=== PATIENT | male | born 1950 | race Caucasian/White ===

== ENCOUNTER 2022-08-01 00:29 | Day surgery (SDC) | payer MEDICARE, OTHER, SELFPAY ==
[2022-07-13 13:37] VITALS: BMI 34.7
[2022-08-01 06:18] VITALS: BP 172/77; PULSE 73; RESP 18; TEMP 36.7; O2SAT 98; BMI 34.8
[2022-08-01] MEDS: LACTATED RINGERS 1,000 ML 150 ML IV CONT (06:47)
--- NOTE | 2022-08-01 07:13 | WPDANESEPPF ---
Anes - Initial Pre Proc Eval Procedure: Operation Date: 08/01/22 07:30 Proposed Procedures p Colonoscopy - Rubén Finney MD Date/Time: 08/01/22 07:13 Surgeon: Rubén Finney MD Pre Op Diagnosis: LENARD Patient Data Age: 71 Gender: M Height: 1.78 m Weight: 110.1 kg Last Vital Signs Temp 98.0 F 08/01/22 06:18 Pulse 73 08/01/22 06:18 Resp 18 08/01/22 06:18 BP 172/77 H 08/01/22 06:18 Pulse Ox 98 08/01/22 06:18 O2 Del Method Room Air 08/01/22 06:18 Allergies Allergy/AdvReac Type Severity Reaction Status Date / Time No Known Allergies Allergy NONE Verified 08/01/22 06:25 Home Medications Medication Instructions Recorded Confirmed Type aspirin 81 mg tablet,delayed 81 mg PO DAILY 09/09/19 08/01/22 History release (Adult Aspirin Regimen) amlodipine 10 mg tablet 10 mg PO DAILY #90 tabs 12/27/21 08/01/22 Rx atorvastatin 40 mg tablet 40 mg PO DAILY #90 tabs 12/27/21 08/01/22 Rx carvedilol 25 mg tablet 25 mg PO Q12H #180 tabs 12/27/21 08/01/22 Rx ferrous sulfate 325 mg (65 mg 325 mg PO DAILY 12/27/21 08/01/22 History iron) tablet (Sohail-Time) losartan 100 1 tablet PO DAILY #90 tabs 12/27/21 08/01/22 Rx mg-hydrochlorothiazide 25 mg tablet magnesium oxide 400 mg (241.3 mg See Rx Instructions .Route 12/27/21 08/01/22 Rx magnesium) tablet .COMPLEX #180 tabs omeprazole 40 mg capsule,delayed 40 mg PO DAILY #90 caps 12/27/21 08/01/22 Rx release potassium chloride 10 mEq 10 meq PO DAILY #90 caps 01/24/22 08/01/22 Rx capsule,extended release Patient hx anesthesia problems: none Family hx anesthesia problems: none Results Review: All pre-operative results and documents have been reviewed as part of the pre-operative evaluation. [facility] Past Medical History Medical History Adult general medical exam Anemia Atypical chest pain Bilateral edema of lower extremity Carpal tunnel syndrome of right wrist Deviated septum Dietary counseling and surveillance (10/17/16) Encounter for screening for malignant neoplasm of prostate Fatigue Gastro-esophageal reflux disease without esophagitis Hiatal hernia History of hyperlipidemia History of hypertension Hyperglycemia Hypokalemia Hypomagnesemia Low serum HDL Other fatigue Other hyperlipidemia Pure hypercholesterolemia Pure hypercholesterolemia, unspecified Right arm pain Testicular hypofunction Thrombocytopenia, unspecified Uvulitis Ventral hernia without obstruction or gangrene Vertigo Surgical History Surgical History History of carpal tunnel release History of cataract removal with insertion of prosthetic lens History of lumbosacral spine surgery History of nasal surgery History of umbilical hernia repair Family History Family History Father Cerebrovascular accident, Onset Age: 81 Patient's father is Mother Family history of diabetes mellitus in first degree relative, Onset Age: 80 Family history of renal failure Patient's mother is Cerebrovascular accident Diabetes mellitus Other Cancer Social History Social History Smoking packs per day: 0.5 Smoking cigarettes per day: 10.0 Years smoked: 3 Smoking pack-years: 1.50 Smoking status: Former smoker Tobacco type: cigarettes Second hand tobacco smoke exposure: No Smoking end date: 10/22/87 Substance use: never Substance use type: does not use Living arrangements: other Additional living arrangements comments: with diya Perez Final PreProcedure Day of Procedure 08/01/22 07:13 Patient weight: obese Heart: regular rate and rhythm Lungs: clear to auscultation Neurological: alert and oriented Last oral intake: >/= 8 hours ASA classification: III Emergent: no Anestheti
--- NOTE | 2022-08-01 07:59 | PM.HPGS ---
History of Present Illness History of Present Illness Consent: Risks, benefits, and alternatives have been discussed and questions answered. Patient agrees to proceed with procedure. Chief complaint: LENARD Narrative: Torin Richards is a 71 year old male Recently found to have anemia. Patient denies any blood in his stools. He denies abdominal pain. He has had no obvious bleeding. He denies bleeding elsewhere. No nose bleeds or bruises. Family history noncontributory. Is been about 10 years since last screening exam. Patient presents today for colonoscopy. Recent iron studies appear adequate. There was some concern over previous low iron. Patient's baseline hemoglobin briefly was round 10. With normochromic normocytic indices. Review of Systems Review of Systems: Review of systems noncontributory. REPLACED BY [facility] Past Medical History Medical History Adult general medical exam Anemia Atypical chest pain Bilateral edema of lower extremity Carpal tunnel syndrome of right wrist Deviated septum Dietary counseling and surveillance (10/17/16) Encounter for screening for malignant neoplasm of prostate Fatigue Gastro-esophageal reflux disease without esophagitis Hiatal hernia History of hyperlipidemia History of hypertension Hyperglycemia Hypokalemia Hypomagnesemia Low serum HDL Other fatigue Other hyperlipidemia Pure hypercholesterolemia Pure hypercholesterolemia, unspecified Right arm pain Testicular hypofunction Thrombocytopenia, unspecified Uvulitis Ventral hernia without obstruction or gangrene Vertigo Surgical History Surgical History History of carpal tunnel release History of cataract removal with insertion of prosthetic lens History of lumbosacral spine surgery History of nasal surgery History of umbilical hernia repair Family History Family History Father Cerebrovascular accident, Onset Age: 81 Patient's father is Mother Family history of diabetes mellitus in first degree relative, Onset Age: 80 Family history of renal failure Patient's mother is Cerebrovascular accident Diabetes mellitus Other Cancer Social History Social History Smoking packs per day: 0.5 Smoking cigarettes per day: 10.0 Years smoked: 3 Smoking pack-years: 1.50 Smoking status: Former smoker Tobacco type: cigarettes Second hand tobacco smoke exposure: No Smoking end date: 10/22/87 Substance use: never Substance use type: does not use Living arrangements: other Additional living arrangements comments: with sp Meds Home Medications and Allergies Home Medications Medication Instructions Recorded Confirmed Type aspirin 81 mg tablet,delayed 81 mg PO DAILY 09/09/19 08/01/22 History release (Adult Aspirin Regimen) amlodipine 10 mg tablet 10 mg PO DAILY #90 tabs 12/27/21 08/01/22 Rx atorvastatin 40 mg tablet 40 mg PO DAILY #90 tabs 12/27/21 08/01/22 Rx carvedilol 25 mg tablet 25 mg PO Q12H #180 tabs 12/27/21 08/01/22 Rx ferrous sulfate 325 mg (65 mg 325 mg PO DAILY 12/27/21 08/01/22 History iron) tablet (Sohail-Time) losartan 100 1 tablet PO DAILY #90 tabs 12/27/21 08/01/22 Rx mg-hydrochlorothiazide 25 mg tablet magnesium oxide 400 mg (241.3 mg See Rx Instructions .Route 12/27/21 08/01/22 Rx magnesium) tablet .COMPLEX #180 tabs omeprazole 40 mg capsule,delayed 40 mg PO DAILY #90 caps 12/27/21 08/01/22 Rx release potassium chloride 10 mEq 10 meq PO DAILY #90 caps 01/24/22 08/01/22 Rx capsule,extended release Allergies Allergy/AdvReac Type Severity Reaction Status Date / Time No Known Allergies Allergy NONE Verified 08/01/22 06:25 Vital Signs Vital Signs - 24 hr 08/01/22 06:18 Temperature 98.0 F Pulse Rate 73
[2022-08-01 08:03] VITALS: BP 127/94; PULSE 70; RESP 21; O2SAT 97
[2022-08-01 08:13] VITALS: BP 137/73; PULSE 67; RESP 20; O2SAT 99
[2022-08-01 08:23] VITALS: BP 143/73; PULSE 63; RESP 22; O2SAT 99
== END 2022-08-01 08:35 | disposition home or self-care (01) ==
PROVIDERS: PCP Internal Medicine; Visit Provider Internal Medicine Gastroenterology
PROC: 0DJD8ZZ Inspection of Lower Intestinal Tract, Via Natural or Artificial Opening Endoscopic (ICD-10-PCS; CPT 45378; principal; 2022-08-01 07:30)
DX: Z12.11 Encounter for screening for malignant neoplasm of colon (principal); K63.5 Polyp of colon; D50.9 Iron deficiency anemia, unspecified; K57.30 Diverticulosis of large intestine without perforation or abscess without bleeding; K64.8 Other hemorrhoids; R53.83 Other fatigue; I10 Essential (primary) hypertension; E78.5 Hyperlipidemia, unspecified; R73.9 Hyperglycemia, unspecified; K21.9 Gastro-esophageal reflux disease without esophagitis; E78.00 Pure hypercholesterolemia, unspecified; D69.6 Thrombocytopenia, unspecified; Z87.891 Personal history of nicotine dependence; Z79.82 Long term (current) use of aspirin; E66.9 Obesity, unspecified; Z68.34 Body mass index [BMI] 34.0-34.9, adult
CPT/HCPCS: 45385; 88305; J2704; J7120

== ENCOUNTER → 2022-10-10 08:11 | Outpatient (CLI) | payer MEDICARE, OTHER, SELFPAY ==
--- NOTE | ~2022-10-10 | CT_ITS ---
Non-contrast CT scan of the Abdomen and Pelvis Clinical indication: Periumbilical pain Technique: 5 mm axial scans were obtained through the abdomen and pelvis without intravenous or oral contrast. Dose reduction technique was used on this scan by utilizing automated exposure control and iterative reconstruction technique. The dose-length product (DLP) was 1015.56 mGy-cm. COMPARISON: 10/20/2016 Findings: Images through the lung bases reveal no abnormalities. There is no evidence of renal or ureteral calculi. The kidneys and the ureters are nondilated. There is bilateral perinephric stranding, nonspecific. The liver, spleen, pancreas, gallbladder, and adrenals appear normal. There is no aortic aneurysm. There is no evidence of bowel obstruction. There is minimal haziness in the central mesentery. Images through the pelvis were performed. There is no evidence of ascites or lymphadenopathy. Urinary bladder unremarkable. Prostate gland and seminal vesicles are unremarkable. Bilateral L5 pars intera rticularis defects are present, without subluxation. Impression: Minimal haziness in the central mesentery. 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 Bilateral perinephric stranding, nonspecific, similar to prior exam. Reviewed, dictated and finalized at [facility]. [facility] Impression: Minimal haziness in the central mesentery. Consider mild mesenteric panniculiti s. Bilateral perinephric stranding, nonspecific, similar to prior exam.
== END ==
PROVIDERS: PCP Internal Medicine; Visit Provider Surgery
DX: R10.33 Periumbilical pain (principal); Z87.19 Personal history of other diseases of the digestive system; R93.5 Abnormal findings on diagnostic imaging of other abdominal regions, including retroperitoneum
CPT/HCPCS: 74176

== ENCOUNTER 2022-10-24 15:28 | Outpatient (CLI) | payer MEDICARE, OTHER, SELFPAY ==
--- NOTE | ~2022-10-24 | XR_ITS ---
EXAM: XR knee RT 3V DATE: 10/24/2022 16:25 HISTORY: M25.561 - Pain in right knee FOR 1 WEEK OVER ENTIRE KNEE . COMPARISON: None available. FINDINGS: Normal mineralization. No fracture or dislocation. No lytic or blastic lesion. Mild medial joint space narrowing. Mild tricompartmental osteophytosis. No erosion or periosteal change. Moderat e volume joint fluid. Vascular calcifications. 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 Moderate right knee joint effusio n. Reviewed, dictated and finalized at location [facility] IMPRESSION: Mild tricompartmental osteoarthritis of the right knee. Moderate ri ght knee joint effusion.
== END 2022-10-24 15:29 | disposition home or self-care (01) ==
PROVIDERS: PCP Internal Medicine; Visit Provider Internal Medicine
DX: M25.561 Pain in right knee (principal); M17.11 Unilateral primary osteoarthritis, right knee
CPT/HCPCS: 73562

== ENCOUNTER 2023-10-09 12:31 | Outpatient (CLI) | payer MEDICARE, OTHER, SELFPAY ==
--- NOTE | 2023-10-09 14:00 | NEURO_ITS ---
Impression: # Complains of numbness of right hand. 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 # Right Carpal Tunnel Syndrome. # Abnormal needle/EMG exam in 1st DI and APB. Nerve Conduction Studies Anti Sensory Summary Table Stim Site NR Peak (ms) P-T Amp (?V) Site1 Site2 Delta-P (ms) Dist (cm) Art (m/s) Right Median Anti Sensory (2-3nd Digit) Wrist 5.2 8.2 Wrist 2-3nd Digit 5.2 14.0 27 Wrist 4.9 6.3 Wrist 2-3nd Digit 5.2 14.0 27 Right Radial Anti Sensory (Base 1st Digit) Wrist 2.6 27.9 Wrist Base 1st Digit 2.6 0.0 Right Ulnar Anti Sensory (5th Digit) Wrist 5.2 5.4 Wrist 5th Digit 5.2 14.0 27 Motor Summary Table Stim Site NR Onset (ms) O-P Amp (mV) Site1 Site2 Delta-0 (ms) Dist (cm) Art (m/s) Right Median Motor (Abd Poll Brev) Wrist 4.5 2.6 Elbow Wrist 6.0 29.0 48 Elbow 10.5 2.0 Right Ulnar Motor (Abd Dig Minimi) Wrist 3.6 1.8 A Elbow Wrist 9.1 34.0 37 A Elbow 12.7 0.7 B Elbow Wrist 6.1 22.0 36 B Elbow 9.7 0.4 F Wave Studies NR F-Lat (ms) L-R F-Lat (ms) Right Median (Mrkrs) (Abd Poll Brev) 31.58 Right Ulnar (Mrkrs) (Abd Dig Min) 30.99 EMG Side Muscle Nerve Root Ins Act Fibs Amp Dur Recrt Comment Right 1stDorInt Ulnar C8-T1 Nml Nml Incr Nml Reduced Right Ext Indicis Radial (Post Int) C7-8 Nml Nml Nml Nml Nml Right Ext Digitorum Radial (Post Int) C7-8 Nml Nml Nml Nml Nml Right BrachioRad Radial C5-6 Nml Nml Nml Nml Nml Right PronatorTeres Median C6-7 Nml Nml Nml Nml Nml Right Abd Poll Brev Median C8-T1 Nml Nml Nml Nml Nml Right ABD Dig Min Ulnar C8-T1 Nml Nml Incr Nml Reduced Right Biceps Musculocut C5-6 Nml Nml Nml Nml Nml MTDD
== END 2023-10-09 12:32 | disposition home or self-care (01) ==
LOC: ANHNEURO 12:34
PROVIDERS: PCP Internal Medicine; Visit Provider Physician Assistant
DX: R20.0 Anesthesia of skin (principal); G56.01 Carpal tunnel syndrome, right upper limb; G56.21 Lesion of ulnar nerve, right upper limb
CPT/HCPCS: 95886; 95909